=== PATIENT | male | born 2000 | race Caucasian/White ===

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

== ENCOUNTER 2019-04-17 01:01 | Emergency (ER) | payer OTHER ==
[~2019-04-17] VITALS: Ht 180.3 cm; Wt 90.7 kg
[~2019-04-17 01:01] MED LIST changes: +BENTYL 10 MG CA10 M1 PO; +DEPRESSION MEDICATIO
[2019-04-17 01:45] LABS: HEMATOCRIT 48.7 % (42.0-52.0); HEMOGLOBIN 17.1 gm/dL (14.0-18.0); MCH 29.2 pg (26.0-34.0); MCHC 35.1 g/dL (28.0-37.0); MCV 83.3 fL (80.0-100.0); NUCLEATED RBCS 0 /100WBC; PLATELET COUNT* 214 thou/uL (150-400); RBC 5.84 mil/uL (4.50-6.00); RDW-CV 13.5 % (10.5-14.5); WBC 13.7 thou/uL (4.0-11.0)
[2019-04-17] MEDS ORDERED: ZOFRAN ODT4 MG SUBLING (01:51)
[2019-04-17 02:02] LABS: INFLUENZA A ANTIGEN Negative (Negative); INFLUENZA B ANTIGEN Negative (Negative)
[2019-04-17 02:08] LABS: CALCIUM 10.2 mg/dL (8.5-10.1); CREATININE 1.4 mg/dL (0.6-1.3); POTASSIUM 4.1 mmol/L (3.5-5.1)
[2019-04-17 02:12] LABS: ALBUMIN 5.1 g/dL (3.4-5.0); TOTAL BILIRUBIN 1.2 mg/dL (<0.1-1.0)
[2019-04-17 02:17] LABS: ABSOLUTE MONOCYTES 0.5 thou/uL (0.0-1.2); ABSOLUTE NEUTROPHILS 12.2 thou/uL (1.6-8.1); PLATELET ESTIMATE ADEQUATE
[2019-04-17] MEDS ORDERED: CIPROFLOXACIN500 M1 PO (03:37)
[2019-04-17 04:00] VITALS: BP 112/54
== END 2019-04-17 04:00 | disposition home or self-care (01) ==
LOC: M.ERS 01:01
PROVIDERS: Family Medicine
DX: R10.84 Generalized abdominal pain (principal); R11.2 Nausea with vomiting, unspecified; R19.7 Diarrhea, unspecified; F32.9 Major depressive disorder, single episode, unspecified